=== PATIENT | female | born 1990 | race Caucasian/White ===

== ENCOUNTER 2018-07-13 18:16 | Emergency (ER) | payer OTHER ==
[2018-07-13 19:19] VITALS: BP 98/61
--- NOTE | 2018-07-13 19:39 | ED ---
GI/ HPI - HPI Summary HPI Summary: 28 yr old female with dysuria, frequency of urination for a couple of days. Today she had some yellow vaginal discharge. She complains of mild bilateral flank pain as well today. She is 26 weeks . One sexual partner. No fever, chills, nausea, vomiting. No vaginal bleeding or bloody show. No low abdominal or pelvic cramping. - History of Current Complaint Chief Complaint: [facility] Time Seen by Provider: 07/13/18 19:24 Stated Complaint: URINARY Pain Intensity: 5 - Allergy/Home Medications Allergies/Adverse Reactions: Allergies Allergy/AdvReac Type Severity Reaction Status Date / Time No Known Allergies Allergy Verified 07/13/18 19:13 Home Medications: Home Medications Pnv No.95/Ferrous Fum/Folic AC [ Tablet] 1 tab DAILY 07/13/18 [History Confirmed 07/13/18] PMH/Surg Hx/FS Hx/Imm Hx - Surgical History Surgery Procedure, Year, and Place: Gastric bypass, 2014. Gallbladder, Nov 2017 Infectious Disease History: No Infectious Disease History: Denies: Traveled Outside the [place] in Last 30 Days - Family History Known Family History: Positive: None - Social History Occupation: Employed Full-time Alcohol Use: None Substance Use Type: Reports: None Smoking Status (MU): Never Smoked Tobacco Review of Systems Constitutional: Negative Gastrointestinal: Negative Positive: dysuria, discharge, frequency, flank pain All Other Systems Reviewed And Are Negative: Yes Physical Exam - Summary Physical Exam Summary: Pelvic Exam done in the presence of female nurse: Inez Olivares RN. Triage Information Reviewed: Yes Vital Signs On Initial Exam: Initial Vitals Temp Pulse Resp BP Pulse Ox 98 F 65 16 98/61 100 07/13/18 19:14 07/13/18 19:14 07/13/18 19:14 07/13/18 19:14 07/13/18 19:14 Vital Signs Reviewed: Yes Appearance: Positive: Well-Appearing, No Pain Distress Skin: Positive: Warm, Skin Color Reflects Adequate Perfusion Head/Face: Positive: Normal Head/Face Inspection Eyes: Positive: EOMI ENT: Positive: Normal ENT inspection Neck: Positive: Nontender Respiratory/Lung Sounds: Positive: Clear to Auscultation, Breath Sounds Present Cardiovascular: Positive: RRR. Negative: Murmur Abdomen Description: Positive: Nontender. Negative: CVA Tenderness (R), CVA Tenderness (L) Pelvic Exam: Positive: External Exam Normal, Bimanual Exam Normal, No Cerv. Motion Tender, Discharge - scant yellow vaginal vault with slight curd to it., Other - cervix long and thick, no bleeding Musculoskeletal: Positive: Strength/ROM Intact Neurological: Positive: Sensory/Motor Intact, Alert, Oriented to Person Place, Time, CN Intact II-III Psychiatric: Positive: Normal - Emily Coma Scale Best Eye Response: 4 - Spontaneous Best Motor Response: 6 - Obeys Commands Best Verbal Response: 5 - Oriented Coma Scale Total: 15 Diagnostics - Vital Signs Vital Signs Temp Pulse Resp BP Pulse Ox 07/13/18 19:14 98 F 65 16 98/61 100 - Laboratory Lab Results: Lab Results 07/13/18 Range/Units 19:23 POC Urine Color Yellow POC Urine Clarity Cloudy POC Urine pH 6.5 (5-9) POC Ur Specif Ewing 1.020 (1.010-1.030) POC Urine Protein 1+ A (Negative) POC Ur Glucose (UA) Negative (Negative) POC Urine Ketones Trace A (Negative) POC Urine Blood 1+ A (Negative) POC Urine Nitrite Negative (Negative) POC Urine Bilirubin Negative (Negative) POC Urine Urobilinogen 0.2 (Negative) POC U Leukocyte Esteras 3+ A (Negative) Lab Statement: Any lab studies that have been ordered have been reviewed, and results considered in the medical decision making process. GIGU Course/Dx - Course Course Of Treatment: 28 yr old female who is 26 weeks with UTI, and also scant vaginal discharge. Will Rx antibiotics for the UTI. Await BOX SEALING INSPECTOR culture affirm and then treat appropriately as needed based on those results. - Diagnoses Provider Diagnoses: UTI (urinary tract infection), Vaginal discharge in Discharge - Sign-Out/Discharge Documenting (check all that apply): Patient Departure All imaging exams completed and their final reports reviewed: No Studies - Discharge Plan Condition: Good Disposition: HOME Prescriptions: Nitrofurantoin Monohyd/M-Cryst [Macrobid 100 mg Capsule] 100 mg PO BID #14 cap Patient Education Materials: Urinary Tract Infection in (ED), Vaginal Discharge (ED) Referrals: No Primary Care Phys,NOPCP [Primary Care Provider] - Mark Cordova MD [Medical Doctor] - 1 Day Additional Instructions: Keep your OB appointment. Please go to the ER for any further symptoms worsening symptoms. - Billing Disposition and Condition Condition: GOOD Disposition: Home
--- NOTE | 2018-07-15 07:34 | ED ---
Progress - Progress Note Progress Note: call patient with positive gardnerella, and the script sent to her pharmacy for clindamycin gel. Course/Dx - Course Course Of Treatment: 28 yr old female who is 26 weeks with UTI, and also scant vaginal discharge. Will Rx antibiotics for the UTI. Await WATCH SUPERVISOR culture affirm and then treat appropriately as needed based on those results. - Diagnoses Provider Diagnoses: UTI (urinary tract infection), Vaginal discharge in Discharge - Sign-Out/Discharge Documenting (check all that apply): Patient Departure All imaging exams completed and their final reports reviewed: No Studies - Discharge Plan Condition: Good Disposition: HOME Prescriptions: Nitrofurantoin Monohyd/M-Cryst [Macrobid 100 mg Capsule] 100 mg PO BID #14 cap Patient Education Materials: Urinary Tract Infection in (ED), Vaginal Discharge (ED) Referrals: Mark Cordova MD [Medical Doctor] - 1 Day No Primary Care Phys,NOPCP [Primary Care Provider] - Additional Instructions: Keep your OB appointment. Please go to the ER for any further symptoms worsening symptoms. - Billing Disposition and Condition Condition: GOOD Disposition: Home
== END 2018-07-13 20:01 | disposition home or self-care (01) ==
LOC: UCCORT 18:16
DX: O23.42 Unspecified infection of urinary tract in pregnancy, second trimester (principal); O26.892 Other specified pregnancy related conditions, second trimester; N89.8 Other specified noninflammatory disorders of vagina; Z3A.26 26 weeks gestation of pregnancy
CPT/HCPCS: 81003; 87077; 87086; 87480; 87491; 87510; 87591; 87661; 99202; G0463

== ENCOUNTER 2020-01-03 14:40 | Emergency (ER) | payer OTHER ==
--- OUTSIDE RECORDS SUMMARY | 2020-01-03 14:48 | XMS REPORT | Continuity of Care Document ---
:1990 Author Organization 0001 - [facility] Address [address] [place] [address] Phone Care Team Providers Name Role Phone RAHAT GONZALEZ Unavailable Unavailable Allergies, Adverse Reactions, Alerts Substance Reaction Status Substance Type Unknown WARNIN allergy(ies) could not be collected because the type is not supported. Please contact [facility] for further details. Medications Medication Instructions Dosage Effective Dates Status Comments (start - stop) mupirocin 2 % topical apply by topical route 0.00 - Active ointment 3 times every day a small amount to the affected area Nix Creme Rinse 1 % apply by as directed. - Active topical liquid repeat once in 1 week. Claritin 10 mg tablet take 1 tablet by ORAL 10 MG - Active route every day Calcium 500 500 mg - Active calcium (1,250 mg) tablet biotin 10,000 mcg - Active capsule Vitamin B-12 [address] Negrete. 1 po - Active tablet qd Flintstones Complete rx by Dr Negrete. 2 po - Active (iron) chewable qd tablet Problems Condition Effective Dates (start - stop) Clinical Status Abnormal results of liver function studies Breast feeding status of mother Foreign body in left foot, initial encounter Puncture wound with foreign body, left - foot, init encntr Atypical mole Encounter for immunization Deficiency of other specified B group - vitamins Vitamin D deficiency, unspecified - Bariatric surgery status comp - , second trimester Abnormal results of liver function - studies Encntr for general adult medical exam w/o abnormal findings Vitamin D deficiency, unspecified Abnormal liver function tests Body mass index (BMI) 24.0-24.9, adult - B12 deficiency due to diet Encounter for immunization 26 weeks gestation of Bariatric surgery status comp - , second trimester Oth diseases and conditions compl - preg/chldbrth Other specified abnormal findings of - blood chemistry Low grade intrepith lesion cyto smr - crvx (LGSIL) with 22 completed weeks gestation Abnormal ultrasound of spine Bariatric surgery status comp - , third trimester Maternal care for excess growth, - second tri, unsp Oth diseases and conditions compl - preg/chldbrth Other specified abnormal findings of - blood chemistry Low grade intrepith lesion cyto smr - crvx (LGSIL) Abnormal ultrasonic finding on - screening of mother Bariatric surgery status comp - , second trimester 18 weeks gestation of Bariatric surgery status comp - , second trimester Oth diseases and conditions compl - preg/chldbrth Other specified abnormal findings of - blood chemistry Low grade intrepith lesion cyto smr - crvx (LGSIL) Other specified health status - Second trimester Bariatric surgery status comp - , first trimester Oth diseases and conditions compl - preg/chldbrth Other specified abnormal findings of - blood chemistry 14 weeks gestation of - Bariatric surgery status comp - , second trimester 10 weeks gestation of Pap smear for cervical cancer screening Screening for STD (sexually transmitted disease) Bariatric surgery status comp - , first trimester Oth diseases and conditions compl - preg/chldbrth Other specified abnormal findings of - blood chemistry Amenorrhea Less than 8 weeks gestation of Body mass index (BMI) 22.0-22.9, adult - Encounter for test, result - positive Encounter for removal of intrauterine contraceptive device Urinary frequency Elevated ferritin level Encounter to establish care 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) w/o abn findings Possible exposure to STD Amenorrhea Encounter for routine checking of - intrauterine contracep dev Body mass index (BMI) 22.0-22.9, adult - Postsurgical malabsorption, 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 Bariatric surgery status - Routine medical exam History of bariatric surgery Body mass index (BMI) 22.0-22.9, adult - Routine medical exam Routine medical exam Postsurgical malabsorption, 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 Bariatric surgery status - Urinary tract infection with hematuria, site unspecified Hematuria, unspecified Postsurgical malabsorption, 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 Bariatric surgery status - Vitamin D deficiency, unspecified - Acute sinusitis, recurrence not specified, unspecified location Nasal congestion Postsurgical malabsorption, 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 Personal history of endo, nutritional - and metabolic disease Preop examination BMI 38.0-38.9,adult Allergic rhinitis, unspecified allergic rhinitis type Obesity, unspecified - BMI 38.0-38.9,adult Overweight - Body mass index (BMI) 36.0-36.9, adult - BMI 38.0-38.9,adult Overweight - Body mass index (BMI) 36.0-36.9, adult - Obesity (BMI 30-39.9) Body Mass Index 38.0-38.9, adult - Influenza Vaccine - Body Mass Index 39.0-39.9, adult Obesity (BMI 30-39.9) Body Mass Index 39.0-39.9, adult - Encounter for IUD removal Encounter for IUD insertion 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 Tick bite Sinusitis, acute NOS Herpes simplex labialis Examination, routine, over 18 years of age Sympto associated w/female genital - organs NEC Disorder, skin NOS - Fibromatosis, plantar fascial - 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, 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 Heel pain Ankle pain, left Pain in limb - Pain in joint, ankle/foot - Dyschromia NEC - Pain in limb - Pain in joint, ankle/foot - Dyschromia NEC - Pain, throat - Sore throat Pharyngitis, Acute - Abnormal weight gain Dermatomycosis NOS Acute Pain, throat Acute Presence, contraceptive device NEC Chronic Encounter For Removal And Reinsertion Routine Of Intrauterine Contraceptive Device Plantar fasciitis Uncontrolled Procedures Procedure Date Procedure Unknown Results Test Name Date and Time Measure Units Reference Range Abnormal Flag Status Comments Unknown Encounters Encounter Practice Location Reason(s) Diagnoses Date Provider Providers Description For Visit Copied on Encounter 0001 [facility] Primary Abnormal results [facility] of liver function 4- RAHAT. 38A 33-57 Isabella studiesBreast 0 Classic Kasia feeding status of , [facility], Street, mother [facility], [address]. [place], [place], tel:+ [phone], [phone] tel: [phone] 0001 - [facility] Primary [facility] 3- GLORIA. 33-57 Isabella [address], [place], [place], Care, [address], [facility], tel:+ [place], [phone]. [phone] tel:[phone] [place] [address] Primary Foreign body in [facility] left foot, initial 0-202 GLORIA. 33-57 Isabella encounterPuncture 0 38a Kasia wound with foreign [address], body, left foot, [place], encntrAtypical Care, [address], [place] [facility] [place], tel:+ [place], [phone]. [phone] tel:[phone] [facility] - [facility] Primary [facility] 6-202 RAHAT. 38A 33-57 Isabella 0 [facility], [facility], [place], [facility], [address]. [place], [place], tel:+ [phone], [phone] tel: [phone] 0001 - [facility] Primary Oct-1 [facility], Care [facility] 4-201 RAHAT. 38A 33-57 Isabella 9 [facility], [facility], [place], [facility], [address]. [place], [place], tel:+ [phone], [phone] tel: [phone] 0001 - [facility] Primary Encounter for Sep-2 ROCIO [facility] Inc, Care [facility] immunization 7- GLORIA. 33-57 Isabella 9 38a [facility], [address], [facility], tel:+ [place], [phone]. [phone] tel: [phone] 0001 - [facility] Primary Sep-1 [facility], [facility] 6-201 RAHAT. 38A 33-57 Isabella 9 [facility], [facility], [place], [facility], [address]. [place], [place], tel:+ [phone], [phone] tel: [phone] 0001 - [facility] Primary Deficiency of Aug-2 [facility] Inc, [facility] other specified B 3 RAHAT. 38A 33-57 Isabella group 9 [facility] vitaminsVitamin D , [facility], [place], deficiency, [facility] [place], [address]. [place], [place], ic surgery status tel:+ [phone], comp , [phone] tel: second [phone] trimesterAbnormal results of liver function studies 0001 - [facility] Primary David-2 [facility] Inc, [facility] 2-201 RAHAT. 38A 33-57 Isabella 9 [facility], [place], [facility], [address]. [place], [place], tel:+ [phone], [phone] tel:+ [phone] 0001 - [facility] Primary Encntr for general [facility], Care [facility] adult medical exam 5-201 RAHAT. 38A 33-57 Isabella w/o abnormal [address], [facility], Street, deficiency, [place], [address]. [place], l liver function tel:+ [phone], [place] testsBody mass [id number] tel: index (BMI) [id number] 24.0-24.9, salclX41 deficiency due to diet [address] [place] [address] [facility], Care [facility] immunization 8-201 RAHAT. 38A 33-57 Isabella [address], [facility], Street, [place], [facility], [address]. [place], [place], tel:+ [phone], [place] [phone] tel: [phone] [address] [place] [address] 26 weeks gestation [facility], Womens of 4-201 CORBIN. 33-57 Health pregnancyBariatric 8 [address] [facility][1] surgery status [facility], [place], comp , [facility], [place] second [place], [place], [place], [place], [address]. [address], [place] diseases and tel:+ tel:+ conditions compl [phone] preg/chldbrthOther specified abnormal findings of blood chemistryLow grade intrepith lesion cyto smr crvx (LGSIL) [address] [place] [address] with 22 [facility], Womens completed weeks 6-201 WHITE 33-57 Health gestationAbnormal 8 IVANA. [facility][1] ultrasound [address], of spineBariatric [facility] surgery status [facility], [place], [place], comp , [place], [address], [place], [address]. tel:+ trimesterMaternal tel:+ [phone] care for excess [phone] growth, second tri, unspOth diseases and conditions compl preg/chldbrthOther specified abnormal findings of blood chemistryLow grade intrepith lesion cyto smr crvx (LGSIL)Abnormal ultrasonic finding on screening of motherBariatric surgery status comp , second trimester 0001 [facility] 18 weeks gestation JR [facility] Inc, Womens of 9-201 CORBIN. 57 Health pregnancyBariatric 8 [address] [facility][1] surgery status [address], Street, comp , [facility], Kelvin second [place], [place], [place], [address]. [address], [place] diseases and tel:+ tel:+ conditions compl [phone] preg/chldbrthOther specified abnormal findings of blood chemistryLow grade intrepith lesion cyto smr crvx (LGSIL)Other specified health status [address] [place] [address] Second trimester Apr- [facility], Womens pregnancyBariatric 2- NAYOUNG. Health surgery status 8 4417 [facility][1] comp , [address], first trimesterOth [facility] diseases and [place], [place], conditions compl [place]upinder, [address], [place] preg/[place], [address]. tel: specified abnormal tel: [phone] findings of blood [id number] weeks gestation of pregnancyBariatric surgery status comp , second trimester [address] [place] [address] 10 weeks gestation [facility], Womens of pregnancyPap 4-201 NAYOUNG. Health smear for cervical 8 4417 [facility][1] cancer [facility], screeningScreening [facility] for STD (sexually [place], transmitted [place], [address], [place], [address]. tel: surgery status tel: [phone] comp , [phone] first trimesterOth diseases and conditions compl preg/chldbrthOther specified abnormal findings of blood chemistry [address] [place] [address] AmenorrheaLess Feb- [facility], Womens than 8 weeks 6-201 NAYOUNG. 3357 Health gestation of 8 4417 [facility][1] pregnancyBody mass [address], index (BMI) [facility] 22.0-22.9, [place], [place], adultEncounter for [place], [address], [place], [address]. tel:+ result positive tel:+ [phone] [address] [place] [address] Encounter for JR S Inc, Womens removal of CORBIN. Health intrauterine 8 [address] [facility][1] contraceptive [address], [place], device [facility], [place], [place], [address]. [address], [place] tel:+60 tel:+ [phone] 0001 [facility] Primary Urinary frequency Aug- HUMMER [facility] Inc, Care [facility] 7- FLASH. Isabella [address], [facility], [address], [place]. [address], [place] tel:+607 tel:+ [phone] 0001 - [facility] Primary Elevated ferritin Aug- [facility] levelEncounter to RAHAT. 38A Isabella establish care 7 [facility], [place], [facility], [address]. 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 Health (routine) w/o abn 7 4417 [facility][1] findingsPossible Rupinder [place], exposure to [facility] STDAmenorrheaYpsil[place], [place], nter for routine R[place]inder, [address], [place], [address]. tel:+ intrauterine tel:+ [phone] contracep devBody [id number] mass index (BMI) 22.0-22.9, adult 0001 - [facility] Primary [facility] malabsorption, not 3-201 RAHAT. 38A Isabella elsewhere 7 [facility], Street, c surgery status [facility], [address]. [place], [place], tel:+[phone], [place] [phone] tel:+ [phone] [address] [place] [address] Primary Routine medical [facility] examHistory of 4-201 ANAY. Isabella bariatric 6 44 [facility] surgeryBody [facility], index (BMI) [facility] 22.0-22.9, [place], [address]. [place], [place], tel:[phone], [place] [phone] tel:[phone] 0001 - Lab - [facility] Routine medical Dec-1 [facility], exam 4-201 ANAY. 57 6 44 [facility], [facility], [address]. [place], [place], tel:+[phone], [place] [phone] tel:+[phone] 0001 - [facility] Primary Routine medical Dec-0 [facility] exam 5-201 ANAY. Isabella 6 44 [facility], [facility], [address]. [place], [place], tel:+[phone], [place] [phone] tel:+[phone] 0001 - [facility] Primary Sep-2 [facility], [facility] 9-201 RAHAT. 38A - Isabella 6 [facility], [place], [facility], [address]. [place], [place], tel:+[phone], [place] [phone] tel:[phone] 0001 - [facility] Primary Postsurgical Avinash-1 [facility], [facility] malabsorption, not 6-201 RAHAT. 38A Isabella elsewhere 6 [facility], Street, c surgery status [facility], [address]. [place], [place], tel:+[phone], [place] [phone] tel:[phone] 0001 - [facility] Primary Urinary tract Mar-3 [facility], [facility] infection with 0-201 ANAY. Isabella hematuria, site 6 44 [facility] unspecifiedHematur [facility], ne, unspecified [facility], [address]. [place], [place], tel:[phone], [place] [phone] tel:[phone] 0001 - S Primary Postsurgical [place]- [facility] S Inc, Care [facility] malabsorption, not 5-201 DEYSI. Isabella elsewhere 6 38A Kasia classifiedBariatri [facility], c surgery St, [facility], Kelvin statusVitamin D [place], [place], [place], [address]. [address], [place] unspecified tel: tel: [phone] 0001 - S Primary Acute sinusitis, Dec-3 [facility], Care [facility] recurrence not 1-201 DEYSI. Isabella specified, 5 38A Kasia unspecified [facility], location St, [facility], [facility], [place], [place], [address]. [address], [place] tel: tel: [phone] 0001 - S Primary Nasal congestion Dec-2 [facility] S Inc, Care [facility] 4-201 ANAY. Isabella [address], Street, [facility], [address]. [place], [place], tel:+ [phone], [place] [phone] tel: [phone] 0001 - S Primary Postsurgical Dec-2 [facility], Care [facility] malabsorption, not 1-201 DEYSI. Isabella elsewhere 5 38A Kasia classifiedPersonal [facility], history of endo, , [facility], [place] nutritional [place], [place], [place], [address]. [address], [place] tel:+ tel: [phone] 0001 - S Primary Preop Dec-1 [facility], Care [facility] examinationBMI 1-201 DEYSI. Gregory 38.0-38.9,adultAll 5 38A Kasia ergic rhinitis, [facility], unspecified St, [facility], [place] allergic rhinitis [place], [place], [place], [place], [address]. [address], [place] unspecified tel: tel: [phone] 0001 - S Primary BMI Nov- [facility], Care CM 38.0-38.9,adultOve 3-201 DEYSI. 33-57 Isabella rweightBody mass 5 38A Kasia index (BMI) [facility], 36.0-36.9, adult , [facility], [place], [address]. [address], [place] tel: tel: [phone] 0001 - S Primary BMI Oct- [facility], Care [facility] 38.0-38.9,adultOve 6-201 DEYSI. 33-57 Isabella rweightBody mass 5 38A Kasia index (BMI) [facility], 36.0-36.9, adult [facility], [place], [address]. [address], [place] tel: tel: [phone] 0001 - [facility] Primary Obesity (BMI Sep-1 [facility], Care [facility] 30-39.9)Body Mass 1-201 DEYSI. 33-57 Isabella Index 38.0-38.9, 5 38A [facility], [facility], [place], [address]. [address], [place] tel: tel: [phone] 0001 - S Primary Body Mass Index Aug-0 [facility], Care [facility] 39.0-39.9, adult 7-201 DEYSI. 33-57 Isabella 5 38A [facility], [place], [address]. [address], [place] tel: tel: [phone] 0001 - S Primary Obesity (BMI David-1 [facility], Care CM 30-39.9)Body Mass 0-201 DEYSI. 33-57 Isabella Index 39.0-39.9, 5 38A [facility], [place], [address]. [address], [place] tel:+ tel:+ [phone] [address] [place] [address] Encounter for IUD BRESLAU S Inc, Womens removalEncounter 1 TREV. Health for IUD 5 [address] [facility][1] insertionEncounter [facility], For Removal And [facility] Reinsertion [place], [place], [place], [address]. 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 [place] 5 [address] [place], [address]. [address], [place] tel:+ tel:+ [phone] [address] [place] [address] Primary Tick bite Apr-2 S Inc, Care [facility] 4-[address] [place] [address] 5 [place], [address], [place] tel:+ [phone] [address] [place] [address] Primary Nov-0 [facility], [facility] 6-201 DEYSI. [place] 4 [address] [place], [address]. [address], [place] tel:+ tel:+ [phone] [address] [place] [address] Primary Sinusitis, acute Sep-1 [facility] Inc, Care [facility] NOSHerpes simplex 2-201 DEYSI. [place] labialis 3 38A [facility], [place], [address]. [address], [place] tel:+ tel:+ [phone] [address] [place] [address] Examination, BRESLAU S Inc, Womens routine, over 18 3- TREV. Health years of ageSympto 3 [address] [facility][1] associated [facility], w/female genital [facility], Kelvin organs N[place], [place], [address]. [address], [place] tel:+ tel:+ [phone] 0001 [facility] Primary Disorder, skin NOS Mar-2 [facility], Care [facility] 5-201 DEYSI. 33-57 [place] 3 38A [facility], [place], [address]. [address], [place] tel:+ tel: [phone] [address] [place] [address] Plantar Avinash-0 [facility], Pediatrics fasciitisFibromato 4-201 DEYSI. 33-57 [facility] sis, plantar 2 [address]A [place] fascial [facility], [place], [address]. [address], [place] tel: tel: [phone] [address] [place] [address] 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, Mar-2 [facility], Pediatrics smearedHeel 2-201 DEYSI. 33-57 [facility] painAnkle pain, 2 38A [place] leftPain in [facility], limbPain in joint, [facility] ankle/footDyschrom [place], [address]. [address], [place] limbPain in joint, tel:+ tel: ankle/footDyschrom [phone] ia NEC 0001 - S Pain, throatSore Nov- [facility], Pediatrics throatPharyngitis, 201 DEYSI. 33-57 [facility] Acute 2 38A [facility], [facility], [place], [address]. [address], [place] tel:+60 tel: [phone] 0001 [facility] Abnormal weight Oct-0 [facility], Pediatrics gain 5-201 DEYSI. 33-57 [facility] 0 38A [facility], [facility], [place], [address]. [address], [place] tel:+60 tel:+ [phone] 0001 - S Dermatomycosis NOS Sep-2 [facility], Pediatrics 8-200 DEYSI. 33-57 [facility] 9 [address] [place], [address]. [address], [place] tel:+60 tel:+60 [phone] 0001 - S Pain, throat Apr-1 [facility], Pediatrics 3-200 RADHA. 179 33-57 [facility] 9 N [facility], [facility], [address]. [place], [place], tel:+ [phone], [place] [phone] tel:+ [phone] 0001 - S Presence, Feb-0 [facility], Pediatrics contraceptive 2-200 DEYSI. 33-57 [facility] device NEC 9 [address] [place], [address]. [address], [place] tel:+60 tel:+[phone] 0001 - May-0 [facility], 7-200 DEYSI. 33-57 8 [address] [place], [address]. [address], [place] tel:+60 tel:+ [phone] Family History Family Member Diagnosis Age At Onset Paternal grandmother Cancer, breast Maternal grandfather Heart disease,colon cancer(age 74) Maternal grandfather Coronary artery disease Maternal grandmother Asthma Maternal aunt Leukemia Maternal grandmother pancreatic ca, copd, dm Immunizations Vaccine Date Status Comments TDAP (Boostrix or Adacel) administered Source: New Immunization Record Influenza, injectable, administered Source: New Immunization quadrivalent, preservative Record free, split virus TDAP (Boostrix or Adacel) administered Source: Other Registry Influenza, injectable, administered Source: New Immunization quadrivalent, preservative Record free, split virus Influenza, injectable, administered Source: New Immunization quadrivalent, preservative Record free, split virus 3 years or older, Fluarix Quad Fluarix, Flulaval, or Flluzone administered Source: New Immunization Quad Record flu (split) (3 yrs or older) administered Note: Abstracted:09/13 ; preservative free Source: New Immunization Record flu (split) (3 yrs or older) administered Note: Abstracted:07/20 ; Source: New Immunization Record flu (split) (3 yrs or older) administered Note: Abstracted:01/30 Pt. estimated date ; Source: New Immunization Record flu (split) (3 yrs or older) administered Note: Abstracted:11/18 Pt. estimated date ; Source: New Immunization Record gardisil administered Note: Abstracted -03/19/2008 ; Source: New Immunization Record gardisil administered Note: Abstracted -03/19/2008 ; Source: New Immunization Record gardisil administered Note: Abstracted -03/19/2008 ; Source: New Immunization Record adacel administered Note: Abstracted -03/19/2008 ; Source: New Immunization Record Tetanus/Diptheria administered Note: Abstracted -03/19/2008 ; Source: New Immunization Record hep B (adult) administered Note: Abstracted -03/19/2008 ; Source: New Immunization Record hep B (adult) administered Note: Abstracted -03/19/2008 ; Source: New Immunization Record Tetanus/Diptheria administered Note: Abstracted -03/19/2008 ; Source: New Immunization Record hep B (adult) administered Note: Abstracted -03/19/2008 ; Source: New Immunization Record DTP administered Note: Abstracted -03/19/2008 ; Source: New Immunization Record polio, inactivated (IPV) administered Note: Abstracted -2007 ; Source: New Immunization Record MMR administered Note: Abstracted -03/19/2008 ; Source: New Immunization Record DTP administered Note: Abstracted -03/19/2008 ; Source: New Immunization Record polio, inactivated (IPV) administered Note: Abstracted -2007 ; Source: New Immunization Record MMR administered Note: Abstracted -03/19/2008 ; Source: New Immunization Record DTP administered Note: Abstracted -03/19/2008 ; Source: New Immunization Record DTP administered Note: Abstracted -03/19/2008 ; Source: New Immunization Record polio, inactivated (IPV) administered Note: Abstracted -2007 ; Source: New Immunization Record DTP administered Note: Abstracted -03/19/2008 ; Source: New Immunization Record polio, inactivated (IPV) administered Note: Abstracted -2007 ; Source: New Immunization Record Payers Payer name Insurance type Covered democrat ID Authorization(s) Dominic He [id number] Hollister Radha Mgd He [id number] Hollister Radha Mgd He [id number] Hollister Radha Mgd He [id number] [employer] 1 2 He [id number] [facility] McdCommunityPlan He [id number] Social History Type Description Quantity Date Captured Comments Alcohol Use Details Unknown Caffeine Use Details Unknown Tobacco Use Status Unknown Smoking Status Unknown Vital Signs Date / Height Weight BMI Pulse Blood Temperature Respiratory Body Head BMI Time: Rate Pressure Rate Surface Circumference percentile Area Unknown Chief Complaint And Reason For Visit No information Reason For Referral Reason For Referral Unknown Plan Of Care Date Type Action Status Referral Ordered: ordered U/S Abdomen complete Appointment date/timeframe: 12/09/2019 Referral Ordered: ordered U/S OB Follow-up Referral Ordered: ordered U/S OB Detailed exam Referral Ordered: ordered U/S OB limited Appointment date/timeframe: 2 Weeks Referral Referred To: ordered HEENA BRANNON [address] [place] [address], [phone] Ordered: HEENA BRANNON Podiatry. Consult and treat. Appointment date/timeframe: 05/30/2012 Referral Ordered: ordered Xray Ankle complete (Must choose side) Left Referral Ordered: ordered Xray Heel (Os Calsis) (Must choose side) Bilateral Referral Referred To: ordered MEENAKSHI MCGOWAN [facility] [address] [place], [place], [id number] [phone] Ordered: MEENAKSHI MCGOWAN. [facility]. Consult and treat. Date Type Problem Goal Intervention Status Start Date Unknown History Of Present Illness Encounter Date Complaint History Of Present Illness No information Functional Status Encounter Date Functional Assessment Cognitive Assessment Unknown Medications Administered Medication Instructions Dosage Effective Dates (start - stop) Status Comments Drug Treatment Unknown Instructions Date Instruction Additional Information Continue to breast feed Related to Breast feeding status of mother Soak the foot twice a day and then Related to Foreign body in left dry and apply mupirocin ointment and foot, initial encounter keep covered with a bandaidDo this for a full week at least until the skin heals. If it gets worse or looks infected, call right away to be seen. Blood work to be completed including Related to Abnormal liver function liver functions and iron studies. tests Will call with results and set up followup with gastroenterology. To have vitamin D levels checked Related to Vitamin D deficiency, today. unspecified Class Signup 28 week bloodwork and rhogam explained AFP4 Discussed RH Negative Bloodwork explained Parenting Education Screening / HIV testing Immunizations (Self & Child) Signs & symptoms Labor Multiple Gestation Diabetic Teaching (Insulin/HBSM) Home Blood Pressure Monitoring Sickle Cell Information Seat Belts Sexually transmitted Diseases Working in have [place] in 4weeks follow up in 4 Related to Second trimester weeks Take vit daily, Increase Related to Less than 8 weeks fluid intakeEat small amounts 1-2 gestation of hours to avoid full stomach. Eat before, or as soon as, you feel hungry to avoid an empty stomach. Avoid any raw or undercooked foods, semi-soft cheese, and unpasteurized food productsHave U/S in 2 weekWill follow up in 4 wksReviewed safe medication use during . Written materials provided to patient. return as needed Related to Encounter for removal of intrauterine contraceptive device Please follow-up with Dr. Negrete for Related to Elevated ferritin level further instructions and perhaps see a manager agency but will leave that up to the patient to contact him for further instructions. We surely can send her to Dr. 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 Physicals yearly. Related to Routine medical exam Call with any changes. Bactrim DS one tablet twice a day Related to Urinary tract infection with food. Tylenol for pain or temp. with hematuria, site unspecified Call with any changes. amoxicillin for 10 days. recheck as Related to Acute sinusitis, needed. recurrence not specified, unspecified location Mucinex one tablet twice a day. Cough Related to Nasal congestion syrup as needed Tylenol as needed. Follow up as needed. normal pre op exam. medically Related to Preop examination optimized for surgery.labs reviewed=satisfactory form completed for Dr Negrete. office Related to BMI 38.0-38.9, adult visit as scheduled. recheck weight in 1 month Related to BMI 38.0-38.9,adult continue with diet and exercise. Related to Obesity (BMI 30-39.9) form completed for Dr Negrete. office visit in 1 month continue with weight loss diet. Related to Body Mass Index office visit in 4 weeks. see forms 39.0-39.9, adult completed. continue with regular exercise and Related to Obesity (BMI 30- 39.9) diet as ordered by Dr Negrete. 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
--- OUTSIDE RECORDS SUMMARY | 2020-01-03 14:48 | XMS REPORT | Continuity of Care Document ---
:1990 Author Organization 0001 - [facility] Address [address] [place] [address] Phone Care Team Providers Name Role Phone RAHAT GONZALEZ Unavailable Unavailable Allergies, Adverse Reactions, Alerts Substance Reaction Status Substance Type Unknown WARNIN allergy(ies) could not be collected because the type is not supported. Please contact [facility] practice for further details. 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 38A 33-57 [place] studiesBreast 0 Classic Kasia feeding status of , [facility], Street, mother [facility], [address]. [place], tel: [phone], [phone] tel: [phone] 0001 - [facility] Primary [facility] 3- GLORIA. 33-57 [place] [address], [place], Care, [address], [facility], tel:+ [place], [phone]. [phone] tel:[phone] [place] [address] Primary Foreign body in [facility] left foot, initial 0-202 GLORIA. 33-57 [place] encounterPuncture 0 38a Kasia wound with foreign [address], body, left foot, [place], encntrAtypical Care, [address], [place] [facility] [place], tel:+ [place], [phone]. [phone] tel:[phone] [facility] [place] - [facility] Primary Nov- [facility] 2- RAHAT. 38A 33-57 [place] 0 [facility], [facility], [place], [facility], [address]. [place], tel:+ [phone], [phone] tel: [phone] 0001 - [facility] Primary Oct-1 [facility], Care [facility] 4-201 RHAAT. 38A 33-57 [place] 9 [facility], [facility], [place], [facility], [address]. [place], tel:+ [phone], [phone] tel: [phone] 0001 - [facility] Primary Encounter for Sep-2 ROCIO [facility] Inc, Care [facility] immunization 7- GLORIA. 33-57 [place] 9 38a [facility], [address], [facility], tel:+ [place], [phone]. [phone] tel: [phone] 0001 - [facility] Primary Sep-1 [facility], [facility] 6-201 RAHAT. 38A 33-57 [place] 9 [facility], [facility], [place], [facility], [address]. [place], tel:+ [phone], [phone] tel: [phone] 0001 - [facility] Primary Deficiency of Aug-2 [facility], [facility] other specified B 3 RAHAT. 38A 33-57 [place] group 9 [facility] vitaminsVitamin D , [facility], [place], deficiency, [facility] [place], [address]. [place], ic surgery status tel:+ [phone], comp , [phone] tel: second [phone] trimesterAbnormal results of liver function studies 0001 - [facility] Primary David-2 [facility], [facility] 2-201 RAHAT. 38A 33-57 [place] 9 [facility], [place], [facility], [address]. [place], tel:+ [phone], [phone] tel:+ [phone] 0001 - [facility] Primary Encntr for general [facility], Care [facility] adult medical exam 5-201 RAHAT. 38A 33-57 [place] w/o abnormal [address], [facility], Street, deficiency, [place], [address]. [place], l liver function tel:+ [phone], [place] testsBody mass [id number] tel: index (BMI) [id number] 24.0-24.9, [id number] deficiency due to diet [address] [place] [address] Primary Encounter for [facility], Care [facility] immunization 8-201 RAHAT. 38A 33-57 [place] [address], [facility], Street, [place], [facility], [address]. [place], tel:+ [phone], [place] [phone] tel: [phone] [address] [place] [address] 26 weeks gestation [facility], Womens of 4-201 CORBIN. 33-57 Health pregnancyBariatric 8 [address] [facility] surgery status [facility], [place], comp , [facility], [place] second [place], [place], [place], [place], [address]. [address], [place] diseases and tel:+ tel:+ conditions compl [phone] preg/chldbrthOther specified abnormal findings of blood chemistryLow grade intrepith lesion cyto smr crvx (LGSIL) [address] [place] [address] with 22 [facility], Womens completed weeks 6-201 WHITE 33-57 Health gestationAbnormal 8 IVANA. [facility] ultrasound [address], of spineBariatric [facility] surgery status [facility], [place], [place], comp , [place], [address], [place], [address]. tel:+ trimesterMaternal tel:+ [phone] care for excess [phone] growth, second tri, unspOth diseases and conditions compl preg/chldbrthOther specified abnormal findings of blood chemistryLow grade intrepith lesion cyto smr crvx (LGSIL)Abnormal ultrasonic finding on screening of motherBariatric surgery status comp , second trimester 0001 [facility] 18 weeks gestation JR [facility] Inc, Womens of 9-201 CORBIN. 57 Health pregnancyBariatric 8 [address] [facility] surgery status [address], Street, comp , [facility], [place] second [place], [place], [place], [address]. [address], [place] diseases and tel:+ tel:+ conditions compl [phone] preg/chldbrthOther specified abnormal findings of blood chemistryLow grade intrepith lesion cyto smr crvx (LGSIL)Other specified health status [address] [place] [address] Second trimester Apr- [facility], Womens pregnancyBariatric 2- NAYOUNG. Health surgery status 8 4417 [facility] comp , [address], first trimesterOth [facility] diseases and [place], [place], conditions compl Rupinder, [address], [place] preg/[place], [address]. tel: specified abnormal tel: [phone] findings of blood [id number] weeks gestation of pregnancyBariatric surgery status comp , second trimester [address] [place] [address] 10 weeks gestation [facility], Womens of pregnancyPap 4-201 NAYOUNG. Health smear for cervical 8 4417 [facility] cancer [facility], screeningScreening [facility] for STD (sexually [place], [place], transmitted [place], [address], [place], [address]. tel: surgery status tel: [phone] comp , [phone] first trimesterOth diseases and conditions compl preg/chldbrthOther specified abnormal findings of blood chemistry [address] [place] [address] AmenorrheaLess Feb- [facility], Womens than 8 weeks 6-201 NAYOUNG. 3357 Health gestation of 8 4417 [facility] pregnancyBody mass [address], index (BMI) [facility] 22.0-22.9, [place], [place], adultEncounter for [place], [address], [place], [address]. tel:+ result positive tel:+ [phone] [address] [place] [address] Encounter for JR S Inc, Womens removal of CORBIN. Health intrauterine 8 [address] [facility] contraceptive [address], [place], device [facility], [place], [address]. [address], [place] tel:+60 tel:+ [phone] 0001 [facility] Primary Urinary frequency Aug- HUMMER [facility] Inc, Care [facility] 7- FLASH. [place] [address], [facility], [address], [place]. [address], [place] tel:+607 tel:+ [phone] 0001 - [facility] Primary Elevated ferritin Aug- [facility] levelEncounter to RAHAT. 38A [place] establish care 7 [facility], [place], [facility], [address]. [place], tel:+ [phone], [place] [phone] tel: [phone] [address] [place] [address] Encntr for cotton bag sewer [facility], Women exam (general) NAYOUNG. Health (routine) w/o abn 7 4417 [facility] findingsPossible Rupinder [place], exposure to [facility] STDAmenorrheaSlayden, [place], nter [place]inder, [address], [place], [address]. tel:+ intrauterine tel:+ [phone] contracep devBody [id number] mass index (BMI) 22.0-22.9, adult 0001 - [facility] Primary [facility] malabsorption, not 3-201 RAHAT. 38A [place] elsewhere 7 [facility], Street, c surgery status [facility], [address]. [place], tel:+[phone], [place] [phone] tel:+ [phone] [address] [place] [address] Primary Routine medical [facility] examHistory of 4-201 ANAY. [place] bariatric 6 44 [facility] surgeryBody [facility], index (BMI) [facility] 22.0-22.9, [place], [address]. [place], tel:[phone], [place] [phone] tel:[phone] 0001 - Lab - [facility] Routine medical Dec-1 [facility], exam 4-201 ANAY. 57 6 44 [facility], [facility], [address]. [place], [place], tel:+[phone], [place] [phone] tel:+[phone] 0001 - [facility] Primary Routine medical Dec-0 [facility] exam 5-201 ANAY. [place] 6 44 [facility], [facility], [address]. [place], tel:+[phone], [place] [phone] tel:+[phone] 0001 - [facility] Primary Sep-2 [facility], [facility] 9-201 RAHAT. 38A - [place] 6 [facility], [place], [facility], [address]. [place], tel:+[phone], [place] [phone] tel:[phone] 0001 - [facility] Primary Postsurgical Avinash-1 [facility], [facility] malabsorption, not 6-201 RAHAT. 38A [place] elsewhere 6 [facility] classifiedBariatrSouthern [facility], Street, c surgery status [facility], [address]. [place], tel:+[phone], [place] [phone] tel:[phone] 0001 - [facility] Primary Urinary tract Mar-3 [facility], [facility] infection with 0-201 ANAY. [place] hematuria, site 6 44 [facility] unspecifiedHematur [facility], unspecified [facility], [address]. [place], tel:[phone], [place] [phone] tel:[phone] 0001 - S Primary Postsurgical [place]- [facility] S Inc, Care [facility] malabsorption, not 5-201 DEYSI. [place] elsewhere 6 38A Kasia classifiedBariatri [facility], c surgery St, [facility], Kelvin statusVitamin D [place], [place], [place], [place], [address]. [address], [place] unspecified tel: tel: [phone] 0001 - S Primary Acute sinusitis, Dec-3 [facility], Care [facility] recurrence not 1-201 DEYSI. [place] specified, 5 38A Kasia unspecified [facility], location St, [facility], [facility], [place], [address]. [address], [place] tel: tel: [phone] 0001 - S Primary Nasal congestion Dec-2 [facility] Inc, Care [facility] 4-201 ANAY. [place] [address], Street, [facility], [address]. [place], tel:+ [phone], [place] [phone] tel: [phone] 0001 - S Primary Postsurgical Dec-2 [facility], Care [facility] malabsorption, not 1-201 DEYSI. [place] elsewhere 5 38A Kasia classifiedPersonal [facility], history of endo, , [facility], [place] nutritional [place], [place], [place], [address]. [address], [place] tel:+ tel: [phone] 0001 - S Primary Preop Dec-1 [facility], Care [facility] examinationBMI 1-201 DEYSI. Gregory 38.0-38.9,adultAll 5 38A Kasia ergic rhinitis, [facility], unspecified St, [facility], [place] allergic rhinitis [place], [place], [place], [place], [address]. [address], [place] unspecified tel: tel: [phone] 0001 - S Primary BMI Nov- [facility], Care CM 38.0-38.9,adultOve 3-201 DEYSI. 33-57 [place] rweightBody mass 5 38A Kasia index (BMI) [facility], 36.0-36.9, adult , [facility], [place], [address]. [address], [place] tel: tel: [phone] 0001 - S Primary BMI Oct- [facility], Care [facility] 38.0-38.9,adultOve 6-201 DEYSI. 33-57 [place] rweightBody mass 5 38A Kasia index (BMI) [facility], 36.0-36.9, adult [facility], [place], [address]. [address], [place] tel: tel: [phone] 0001 - [facility] Primary Obesity (BMI Sep-1 [facility], Care [facility] 30-39.9)Body Mass 1-201 DEYSI. 33-57 [place] Index 38.0-38.9, 5 38A [facility], [facility], [place], [address]. [address], [place] tel: tel: [phone] 0001 - S Primary Body Mass Index Aug-0 [facility], Care [facility] 39.0-39.9, adult 7-201 DEYSI. 33-57 [place] 5 38A [facility], [place], [address]. [address], [place] tel: tel: [phone] 0001 - S Primary Obesity (BMI David-1 [facility], Care CM 30-39.9)Body Mass 0-201 DEYSI. 33-57 [place] Index 39.0-39.9, 5 38A [facility], [place], [address]. [address], [place] tel:+ tel:+ [phone] [address] [place] [address] Encounter for IUD BRESLAU S Inc, Womens removalEncounter 1 TREV. Health for IUD 5 [address] [facility] insertionEncounter [facility], For Removal And [facility] Reinsertion [place], [place], [place], [address]. [address], [place] Contraceptive tel:+ tel:+ Device [phone] [address] [place] [address] Primary Annual INSPECTOR SUBASSEMBLY exam w/ May-0 [facility], Care [facility] Pap Smear 8-201 DEYSI. [place] 5 [address] [place], [address]. [address], [place] tel:+ tel:+ [phone] [address] [place] [address] Primary Tick bite Apr-2 S Inc, Care [facility] 4-[address] [place] [address] 5 [place], [address], [place] tel:+ [phone] [address] [place] [address] Primary Nov-0 [facility], [facility] 6-201 DEYSI. [place] 4 [address] [place], [address]. [address], [place] tel:+ tel:+ [phone] [address] [place] [address] Primary Sinusitis, acute Sep-1 [facility], Care [facility] NOSHerpes simplex 2-201 DEYSI. [place] labialis 3 38A [facility], [place], [address]. [address], [place] tel:+ tel:+ [phone] [address] [place] [address] Examination, BRES[facility]U [facility] Inc, Womens routine, over 18 3- TREV. Health years of ageSympto 3 [address] [facility] associated [facility], w/female genital [facility], [place] organs NEC [place], [address]. [address], [place] tel:+ tel:+ [phone] 0001 [facility] Primary Disorder, skin NOS Mar-2 [facility], Care [facility] 5-201 DEYSI. 33-57 [place] 3 38A [facility], [place], [address]. [address], [place] tel:+ tel: [phone] [address] [place] [address] Plantar Avinash-0 [facility], Pediatrics fasciitisFibromato 4-201 DEYSI. 33-57 [facility] sis, plantar 2 [address]A [place] fascial [facility], [place], [place], [address]. [address], [place] tel: tel: [phone] [address] [place] [address] Annual INSPECTOR SUBASSEMBLY, Mar-2 [facility], Pediatrics smearedHeel 2-201 DEYSI. 33-57 [facility] painAnkle pain, 2 38A [place] leftPain in [facility], limbPain in joint, [facility] ankle/footDyschrom [place], [address]. [address], [place] limbPain in joint, tel:+ tel: ankle/footDyschrom [phone] ia NEC 0001 - S Pain, throatSore Nov- [facility], Pediatrics throatPharyngitis, 201 DEYSI. 33-57 [facility] Acute 2 38A [facility], [facility], [place], [address]. [address], [place] tel:+60 tel: [phone] 0001 [facility] Abnormal weight Oct-0 [facility], Pediatrics gain 5-201 DEYSI. 33-57 [facility] 0 38A [facility], [facility], [place], [address]. [address], [place] tel:+60 tel:+ [phone] 0001 - S Dermatomycosis NOS Sep-2 [facility], Pediatrics 8-200 DEYSI. 33-57 [facility] 9 [address] [place], [address]. [address], [place] tel:+60 tel:+[phone] 0001 - S Pain, throat Apr-1 [facility], Pediatrics 3-200 RADHA. 179 33-57 [facility] [address] [facility] [facility], [facility], [address]. [place], [place], tel:+ [phone], [place] [phone] tel:+ [phone] 0001 - S Presence, Feb-0 [facility], Pediatrics contraceptive 2-200 DEYSI. 33-57 [facility] device NEC 9 [address] [place], [address]. [address], [place] tel:+60 tel:+[phone] 0001 - May-0 [facility], 7-200 DEYSI. 33-57 8 [address] [place], [address]. [address], [place] tel:+60 tel:+ [phone] Family History Family Member Diagnosis Age At [...] Record Payers Payer name Insurance type Covered republican ID Authorization(s) Dominic He [id number] [employer] Radha Mg[employer] He [id number] [place] [employer]ha Mgd He [id number] [place] Radha Mgd He [id number] Speedy Essential 1 2 He [id number] [facility] McdCommunityPlan He [id number] Social History Type Description Quantity Date Captured [...] Status Referral Ordered: ordered U/S Abdomen complete Referral Ordered: ordered U/S OB Follow-up Referral Ordered: ordered U/S OB Detailed exam Referral Ordered: ordered U/S OB limited Appointment date/timeframe: 2 Weeks Referral Referred To: ordered HEENA BRANNON [address] [place] [address], [phone] Ordered: HEENA BRANNON Podiatry. Consult and treat. Appointment date/timeframe: 05/30/2012 Referral Ordered: ordered Xray Heel (Os Calsis) (Must choose side) Bilateral Referral Ordered: ordered Xray Ankle complete (Must choose side) Left Referral Referred To: ordered MEENAKSHI MCGOWAN [facility] [address] [place], [phone] Ordered: MEENAKSHI MCGOWAN. Genrl Surg. Consult and [...] level further instructions and perhaps see a pantry attendant but will leave that up to the patient to contact him for further instructions. We surely can send her to Dr. 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
[2020-01-03 15:15] VITALS: BP 104/68
--- NOTE | 2020-01-03 15:50 | UC ---
Skin Complaint HPI - HPI Summary HPI Summary: 2-year-old woman comes with a chief complaint of rash at the angles of her mouth. Started about 4 weeks ago after being outside all day. Has tried over- the-counter medications without any relief. Patient is breast-feeding. No fevers no chills. - History of Current Complaint Chief Complaint: UCSkin Time Seen by Provider: 01/03/20 15:35 Stated Complaint: LIP COMPLAINT Pain Intensity: 10 - Allergy/Home Medications Allergies/Adverse Reactions: Allergies Allergy/AdvReac Type Severity Reaction Status Date / Time No Known Allergies Allergy Verified 01/03/20 15:15 Home Medications: Home Medications Pnv No.95/Ferrous Fum/Folic AC [ Tablet] 1 tab DAILY 07/13/18 [History Confirmed 01/03/20] Calcium Carb/Vitamin D3/Vit K1 [Calcium + D Soft Chewable Tab] 1 each PO BID [History Confirmed 01/03/20] Clotrimazole 1% CREAM* [Clotrimazole 1%*] 1 applic TOPICAL BID #14 gm 01/03/20 [ Rx] Cyanocobalamin TAB* [Vitamin B12 TAB*] 500 mcg PO DAILY 01/03/20 [History Confirmed 01/03/20] Folic Acid TAB* [Folvite TAB*] 1 mg PO DAILY 01/03/20 [History Confirmed ] Mupirocin 1 applic TOPICAL BID #22 gm 01/03/20 [Rx] Ped Multivit 43/Iron Fumarate [Flintstones Complete Chew Tab] 18 mg PO BID 01/03 [History Confirmed 01/03/20] medroxyPROGESTERone ACETATE* [DEPO-Provera*] 150 mg IM DAILY 01/03/20 [History Confirmed 01/03/20] PMH/Surg Hx/FS Hx/Imm Hx Previously Healthy: Yes - Surgical History Surgical History: Yes Surgery Procedure, Year, and Place: Gastric bypass, 2014. Gallbladder, Nov 2017. 10/26 - Family History Known Family History: Positive: None - Social History Alcohol Use: None Substance Use Type: None Smoking Status (MU): Never Smoked Tobacco - Immunization History Most Recent Tetanus Shot: UTD Review of Systems All Other Systems Reviewed And Are Negative: Yes Constitutional: Positive: Negative Skin: Positive: Other - see hpi Eyes: Positive: Negative ENT: Positive: Negative Respiratory: Positive: Negative Cardiovascular: Positive: Negative Gastrointestinal: Positive: Negative Motor: Positive: Negative Neurovascular: Positive: Negative Musculoskeletal: Positive: Negative Neurological/Mental Status: Positive: Negative Psychological: Positive: Negative Is Patient Immunocompromised?: No Physical Exam Triage Information Reviewed: Yes Appearance: Well-Appearing, No Pain Distress, Well-Nourished Vital Signs: Initial Vital Signs Temp 99.5 F 01/03/20 15:11 Pulse 60 01/03/20 15:11 Resp 18 01/03/20 15:11 BP 104/68 01/03/20 15:11 Pulse Ox 100 01/03/20 15:11 Vital Signs Reviewed: Yes Eye Exam: Normal Eyes: Positive: Conjunctiva Clear ENT: Negative: Nasal drainage Neck: Positive: Supple Respiratory: Positive: No respiratory distress Cardiovascular: Positive: RRR Musculoskeletal: Positive: Strength Intact, ROM Intact Neurological: Positive: Alert Psychological: Positive: Age Appropriate Behavior Skin: Positive: Other - There is a rash is erythematous at the angles of the mouth consistent with angular colitis. Course/Dx - Course Course Of Treatment: We'll treat both with antifungal clotrimazole and also antibacterial mupirocin. Get reevaluated if worse or any questions or concerns. - Diagnoses Provider Diagnosis: Angular cheilitis Discharge ED - Sign-Out/Discharge Documenting (check all that apply): Patient Departure All imaging exams completed and their final reports reviewed: No Studies - Discharge Plan Condition: Stable Disposition: HOME Prescriptions: Clotrimazole 1% CREAM* [Clotrimazole 1%*] 1 applic TOPICAL BID #14 gm Mupirocin 1 applic TOPICAL BID #22 gm Patient Education Materials: Skin Yeast Infection (ED) Referrals: [facility] [place] [facility] [Outside] Additional Instructions: FOLLOW UP WITH YOUR DOCTOR IF NOT COMPLETELY IMPROVED. Apply the anti-fungal an antibiotic twice a day. GET REEVALUATED SOONER IF NOT IMPROVED OR WORSE OR ANY QUESTIONS OR CONCERNS. - Billing Disposition and Condition Condition: STABLE Disposition: Home
== END 2020-01-03 15:56 | disposition home or self-care (01) ==
LOC: UCCORT 14:40
DX: K13.0 Diseases of lips (principal)
CPT/HCPCS: 99212; G0463